=== PATIENT | male | born 1970 | race Caucasian/White ===

== ENCOUNTER 2019-02-04 20:07 | Inpatient (IN) | payer SELFPAY ==
[~2019-02-04] VITALS: Ht 182.9 cm; Wt 163.7 kg
[2019-02-04] MEDS ORDERED: IV NORMAL SALINE 1000ML BAG 1,000 ML IV ONE ×2 (20:30)
[2019-02-04] MEDS ORDERED: NOREPINEPHRIN 8MG/250ML PREMIX 250 ML IV ONE (20:30)
[2019-02-04] MEDS ORDERED: PIPERACILLIN/TAZOBACTAM 4.5 GM in IV NORMAL SALINE 100ML 100 ML IV ONE (20:30)
[2019-02-04 20:52] LABS: BASO # 0.1 x10^3/uL (0.0-0.2); BASO % 0 % (0-3); EOS # 0.1 x10^3/uL (0.0-0.7); EOS % 1 % (0-3); LYMPH # 5.4 x10^3/uL (1.0-4.8); LYMPH % 34 % (24-48); MEAN CORPUSCULAR HEMOGLOBIN 32 pg (25-35); MEAN CORPUSCULAR HGB CONC 29 g/dL (31-37); MEAN CORPUSCULAR VOLUME 110 fL (79-100); MONO # 0.6 x10^3/uL (0.0-1.1); MONO % 4 % (0-9); NEUT # 9.7 x10^3uL (1.8-7.7); NEUT % 61 % (31-73); PLATELET COUNT 100 x10^3/uL (140-400); RED BLOOD COUNT 1.16 x10^6/uL (4.30-5.70); RED CELL DISTRIBUTION WIDTH 18.1 % (11.5-14.5); WHITE BLOOD COUNT 15.9 x10^3/uL (4.0-11.0)
[2019-02-04 20:56] LABS: HEMATOCRIT 12.8 % (39.0-53.0); HEMOGLOBIN 3.7 g/dL (13.0-17.5)
[2019-02-04 20:59] LABS: PROTHROMBIN TIME PATIENT 25.1 SEC (11.7-14.0)
[2019-02-04] MEDS ORDERED: PANTOPRAZOLE IV PUSH 40 MG VIAL. IVP ONE (21:00)
[2019-02-04] MEDS ORDERED: PANTOPRAZOLE SODIUM IV DRIP 80 MG in IV NORMAL SALINE 100ML 100 ML IV SCH (21:00)
[2019-02-04] MEDS ORDERED: OCTREOTIDE 500 MCG in IV NORMAL SALINE 100ML 100 ML IV PRN (21:00)
[2019-02-04 21:13] LABS: ALBUMIN 1.6 g/dL (3.4-5.0); ALBUMIN/GLOBULIN RATIO 0.6 (1.0-1.7); CALCIUM 8.4 mg/dL (8.5-10.1); CREATININE 2.3 mg/dL (0.7-1.3); GFR 30.8; TOTAL BILIRUBIN 0.2 mg/dL (0.2-1.0); TOTAL PROTEIN 4.5 g/dL (6.4-8.2)
[2019-02-04 21:17] LABS: RED BLOOD COUNT 1.02 x10^6/uL (4.30-5.70); RED CELL DISTRIBUTION WIDTH 18.2 % (11.5-14.5); WHITE BLOOD COUNT 13.4 x10^3/uL (4.0-11.0)
[2019-02-04 21:18] LABS: HEMATOCRIT 11.3 % (39.0-53.0); HEMOGLOBIN 3.2 g/dL (13.0-17.5)
[2019-02-04 21:20] LABS: BILIRUBIN,URINE NEGATIVE (NEG); CLARITY,URINE CLOUDY; COLOR,URINE YELLOW; NITRITE,URINE POSITIVE (NEG); PH,URINE 5.5; PROTEIN,URINE 30 mg/dL (NEG-TRACE)
[2019-02-04 21:26] LABS: PROTHROMBIN TIME PATIENT 24.9 SEC (11.7-14.0)
[2019-02-04 21:40] LABS: AMPHETAMINE/METHAMPHETAMINE NEG (NEG); BARBITURATES POS (NEG); BENZODIAZEPINES NEG (NEG); CANNABINOIDS NEG (NEG); COCAINE NEG (NEG); METHADONE NEG (NEG); OPIATES NEG (NEG); PHENCYCLIDINE NEG (NEG)
[2019-02-04 21:49] LABS: CREATININE 2.3 mg/dL (0.7-1.3); GFR 30.8; POTASSIUM 5.4 mmol/L (3.5-5.1)
[2019-02-04 22:22] LABS: BASE EXCESS ABG -24 mmol/L (-3-3); CORRECTED PCO2 ABG 36 mmHg; CORRECTED PH ABG 6.86; CORRECTED PO2 ABG 255 mmHg; HCO3 ABG 7 mmol/L (21-28); SAT O2 ABG 98 % (92-99)
[2019-02-04 22:24] LABS: BACTERIA,URINE FEW /HPF (0-FEW); WBC,URINE TNTC /HPF (0-4)
[2019-02-04 22:25] LABS: PCO2 ABG 39 mmHg (35-46); PO2 ABG 263 mmHg (75-108)
[2019-02-04 22:25] LABS: AMORPHOUS SEDIMENT,UR PRESENT /HPF; SQUAMOUS EPITHELIAL CELL,UR OCC /LPF
--- NOTE | 2019-02-04 23:11 | PDOC1 ---
History and Physical Date of Admission Date of Admission DATE: 02/04/19 TIME: 23:09 Identification/Chief Complaint Chief Complaint Found down Source Source: Caregiver, Chart review History of Present Illness History of Present Illness Mr Slaughter is a 48 yo M w/ PMHx Cirrhosis, heavy ETOH use, hidradenitis, Prior CVA this past July [address] [facility] who presents post cardiac arrest. Per his mother he was reportedly found unresponsive sitting on commode by his family who called EMS. He did not receive CPR until EMS found the patient was asystolic on arrival (10 minutes + downtime). 15-20 minutes of chest compressions were performed with return to this sinus rhythm. Patient intubated without sedation, prehospital EKG performed and does not reveal STEMI. Patient was hypotensive and bradycardic, started on levophed after large fluid bolus. He was found with Hb of 3.2 and 750 cc of blood suctioned from his stomach after intubation and OGT placement. Central line placed by ED for massive transfusion protocol, which was quickly initiated. He did not awaken after resuscitation and did not require any sedation during procedures, had CT head negative and was transferred to ICU for hypothermia post-arrest protocol. 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 He gets most of his care at [facility] per his mother. Nursing staff noted bleeding in bilateral axilla. ABG on arrival was 6.84/39/263, Cr 2.3, BUN 50, AST 598, ALT 119, Albumin 1.6 Past Medical History Cardiovascular: No pertinent hx Pulmonary: No pertinent hx CENTRAL NERVOUS SYSTEM: CVA (Right MCA CVA 07/2018) GI: GI bleed Heme/Onc: No pertinent hx Hepatobiliary: Cirrhosis Psych: Anxiety, Depression Rheumatologic: No pertinent hx Infectious disease: No pertinent hx ENT: No pertinent hx Renal/: No pertinent hx Endocrine: No pertinent hx Dermatology: No pertinent hx Past Surgical History Past Surgical History: No pertinent history Family History Family History: Heart Disease, High Cholestrol, Hypertension Social History Smoke: No ALCOHOL: heavy Drugs: None Current Medications Current Medications Current Medications Sodium Chloride 1,000 ml @ 1,000 mls/hr 1X ONCE IV ; Start 02/04/19 at 20:30; Stop 02/04/19 at 21:29; Status DC Sodium Chloride 1,000 ml @ 1,000 mls/hr 1X ONCE IV ; Start 02/04/19 at 20:30; Stop 02/04/19 at 21:29; Status DC Norepinephrine Bitartrate 250 ml @ 0 mls/hr 1X ONCE IV ; Start 02/04/19 at 20:30; Stop 02/04/19 at 20:36; Status DC Piperacillin Sod/ Tazobactam Sod 4.5 gm/Sodium Chloride 100 ml @ 200 mls/hr 1X ONCE IV ; Start 02/04/19 at 20:30; Stop 02/04/19 at 20:59; Status DC Pantoprazole Sodium (PROTONIX VIAL for IV PUSH) 80 mg 1X ONCE IVP ; Start 02/04/19 at 21:00; Stop 02/04/19 at 21:02; Status DC Pantoprazole Sodium 80 mg/ Sodium Chloride 100 ml @ 10 mls/hr Q10H IV ; Start 02/04/19 at 21:00 Octreotide Acetate 500 mcg/ Sodium Chloride 101 ml @ 0 mls/hr CONT PRN IV SEE I/O RECORD; Start 02/04/19 at 21:00 Allergies Allergies: Coded Allergies: Unable to Assess (Unverified , 02/04/19) ROS Review of System Unable to obtain 14 point ROS due to patient unresponsive Physical Exam General: Other (Obtunded) HEENT: Atraumatic, Other (ET tube in place, OGT in place, no pupillary reflex, no gag reflex, no corneal reflex) Lungs: Other (Ventilatory breath sounds) Heart: S1S2 Abdomen: Other (No bowel sounds) Male Genitals Exam: bleeding, urethral discharge, other ([place] in place) Rectal Exam: hemorrhoids, other (Bleeding in rectal tube) Extremities: Other (Decreased peripheral pulses, left radial arterial line with good waveform) Skin: Other (Bilateral hidradenitis, bleeding, stasis dermatitis bilateral LE. Tattoo on left forearm) Neuro: Other (Not able to elicit reflexes) Labs Labs Laboratory Tests Test 02/04/19 20:34 02/04/19 21:00 02/04/19 21:30 White Blood Count 15.9 x10^3/uL (4.0-11.0) 13.4 x10^3/uL (4.0-11.0) Red Blood Count 1.16 x10^6/uL (4.30-5.70) 1.02 x10^6/uL (4.30-5.70) Hemoglobin 3.7 g/dL (13.0-17.5) 3.2 g/dL (13.0-17.5) Hematocrit 12.8 % (39.0-53.0) 11.3 % (39.0-53.0) Mean Corpuscular Volume 110 fL (79-100) 111 fL (79-100) Mean Corpuscular Hemoglobin 32 pg (25-35) 32 pg (25-35) Mean Corpuscular Hemoglobin Concent 29 g/dL (31-37) 29 g/dL (31-37) Red Cell Distribution Width 18.1 % (11.5-14.5) 18.2 % (11.5-14.5) Platelet Count 100 x10^3/uL (140-400) 93 x10^3/uL (140-400) Neutrophils (%) (Auto) 61 % (31-73) Lymphocytes (%) (Auto) 34 % (24-48) Monocytes (%) (Auto) 4 % (0-9) Eosinophils (%) (Auto) 1 % (0-3) Basophils (%) (Auto) 0 % (0-3) Neutrophils # (Auto) 9.7 x10^3uL (1.8-7.7) Lymphocytes # (Auto) 5.4 x10^3/uL (1.0-4.8) Monocytes # (Auto) 0.6 x10^3/uL (0.0-1.1) Eosinophils # (Auto) 0.1 x10^3/uL (0.0-0.7) Basophils # (Auto) 0.1 x10^3/uL (0.0-0.2) Prothrombin Time 25.1 SEC (11.7-14.0) 24.9 SEC (11.7-14.0) Prothromb Time International Ratio 2.3 (0.8-1.1) 2.3 (0.8-1.1) Activated Partial Thromboplast Time 97 SEC (24-38) 90 SEC (24-38) Sodium Level 133 mmol/L (136-145) 134 mmol/L (136-145) Potassium Level 5.0 mmol/L (3.5-5.1) 5.4 mmol/L (3.5-5.1) Chloride Level 92 mmol/L (98-107) 94 mmol/L (98-107) Carbon Dioxide Level 10 mmol/L (21-32) 10 mmol/L (21-32) Anion Gap 31 (6-14) 30 (6-14) Blood Urea Nitrogen 50 mg/dL (8-26) 51 mg/dL (8-26) Creatinine 2.3 mg/dL (0.7-1.3) 2.3 mg/dL (0.7-1.3) Estimated GFR (Cockcroft-Gault) 30.8 30.8 BUN/Creatinine Ratio 22 (6-20) Glucose Level 201 mg/dL (70-99) 180 mg/dL (70-99) Lactic Acid Level 21.0 mmol/L (0.4-2.0) Calcium Level 8.4 mg/dL (8.5-10.1) 8.0 mg/dL (8.5-10.1) Ionized Calcium 0.97 mmol/L (1.13-1.32) Total Bilirubin 0.2 mg/dL (0.2-1.0) Aspartate Amino Transf (AST/SGOT) 598 U/L (15-37) Alanine Aminotransferase (ALT/SGPT) 119 U/L (16-63) Alkaline Phosphatase 270 U/L (46-116) Troponin I Quantitative 0.032 ng/mL (0.000-0.055) Total Protein 4.5 g/dL (6.4-8.2) Albumin 1.6 g/dL (3.4-5.0) Albumin/Globulin Ratio 0.6 (1.0-1.7) Ethyl Alcohol Level < 10 mg/dL (0-10) Fibrinogen 277 mg/dL (200-440) Urine Color Yellow Urine Clarity Cloudy Urine pH 5.5 Urine Specific [place] 1.015 Urine Protein 30 mg/dL (NEG-TRACE) Urine Glucose (UA) Negative mg/dL (NEG) Urine Ketones (Stick) Trace mg/dL (NEG) Urine Blood Small (NEG) Urine Nitrite Positive (NEG) Urine Bilirubin Negative (NEG) Urine Urobilinogen Dipstick 1.0 mg/dL (0.2 mg/dL) Urine Leukocyte Esterase Large (NEG) Urine RBC 3-5 /HPF (0-2) Urine WBC Tntc /HPF (0-4) Urine Squamous Epithelial Cells Occ /LPF Urine Amorphous Sediment Present /HPF Urine Bacteria Few /HPF (0-FEW) Urine Opiates Screen Neg (NEG) Urine Methadone Screen Neg (NEG) Urine Barbiturates Pos (NEG) Urine Phencyclidine Screen Neg (NEG) Urine Amphetamine/Methamphetamine Neg (NEG) Urine Benzodiazepines Screen Neg (NEG) Urine Cocaine Screen Neg (NEG) Urine Cannabinoids Screen Neg (NEG) Urine Ethyl Alcohol Pos (NEG) O2 Saturation 98 % (92-99) Arterial Blood pH 6.84 (7.35-7.45) Arterial Blood pH (Temp corrected) 6.86 Arterial Blood pCO2 at Patient Temp 39 mmHg (35-46) Arterial Blood pCO2 (Temp correct) 36 mmHg Arterial Blood pO2 at Patient Temp 263 mmHg (75-108) Arterial Blood pO2 (Temp corrected) 255 mmHg Arterial Blood HCO3 7 mmol/L (21-28) Arterial Blood Base Excess -24 mmol/L (-3-3) Laboratory Tests Test 02/04/19 20:34 02/04/19 21:00 02/04/19 21:30 White Blood Count 15.9 x10^3/uL (4.0-11.0) 13.4 x10^3/uL (4.0-11.0) Red Blood Count 1.16 x10^6/uL (4.30-5.70) 1.02 x10^6/uL (4.30-5.70) Hemoglobin 3.7 g/dL (13.0-17.5) 3.2 g/dL (13.0-17.5) Hematocrit 12.8 % (39.0-53.0) 11.3 % (39.0-53.0) Mean Corpuscular Volume 110 fL (79-100) 111 fL (79-100) Mean Corpuscular Hemoglobin 32 pg (25-35) 32 pg (25-35) Mean Corpuscular Hemoglobin Concent 29 g/dL (31-37) 29 g/dL (31-37) Red Cell Distribution Width 18.1 % (11.5-14.5) 18.2 % (11.5-14.5) Platelet Count 100 x10^3/uL (140-400) 93 x10^3/uL (140-400) Neutrophils (%) (Auto) 61 % (31-73) Lymphocytes (%) (Auto) 34 % (24-48) Monocytes (%) (Auto) 4 % (0-9) Eosinophils (%) (Auto) 1 % (0-3) Basophils (%) (Auto) 0 % (0-3) Neutrophils # (Auto) 9.7 x10^3uL (1.8-7.7) Lymphocytes # (Auto) 5.4 x10^3/uL (1.0-4.8) Monocytes # (Auto) 0.6 x10^3/uL (0.0-1.1) Eosinophils # (Auto) 0.1 x10^3/uL (0.0-0.7) Basophils # (Auto) 0.1 x10^3/uL (0.0-0.2) Prothrombin Time 25.1 SEC (11.7-14.0) 24.9 SEC (11.7-14.0) Prothromb Time International Ratio 2.3 (0.8-1.1) 2.3 (0.8-1.1) Activated Partial Thromboplast Time 97 SEC (24-38) 90 SEC (24-38) Sodium Level 133 mmol/L (136-145) 134 mmol/L (136-145) Potassium Level 5.0 mmol/L (3.5-5.1) 5.4 mmol/L (3.5-5.1) Chloride Level 92 mmol/L (98-107) 94 mmol/L (98-107) Carbon Dioxide Level 10 mmol/L (21-32) 10 mmol/L (21-32) Anion Gap 31 (6-14) 30 (6-14) Blood Urea Nitrogen 50 mg/dL (8-26) 51 mg/dL (8-26) Creatinine 2.3 mg/dL (0.7-1.3) 2.3 mg/dL (0.7-1.3) Estimated GFR (Cockcroft-Gault) 30.8 30.8 BUN/Creatinine Ratio 22 (6-20) Glucose Level 201 mg/dL (70-99) 180 mg/dL (70-99) Lactic Acid Level 21.0 mmol/L (0.4-2.0) Calcium Level 8.4 mg/dL (8.5-10.1) 8.0 mg/dL (8.5-10.1) Ionized Calcium 0.97 mmol/L (1.13-1.32) Total Bilirubin 0.2 mg/dL (0.2-1.0) Aspartate Amino Transf (AST/SGOT) 598 U/L (15-37) Alanine Aminotransferase (ALT/SGPT) 119 U/L (16-63) Alkaline Phosphatase 270 U/L (46-116) Troponin I Quantitative 0.032 ng/mL (0.000-0.055) Total Protein 4.5 g/dL (6.4-8.2) Albumin 1.6 g/dL (3.4-5.0) Albumin/Globulin Ratio 0.6 (1.0-1.7) Ethyl Alcohol Level < 10 mg/dL (0-10) Fibrinogen 277 mg/dL (200-440) Urine Color Yellow Urine Clarity Cloudy Urine pH 5.5 Urine Specific [place] 1.015 Urine Protein 30 mg/dL (NEG-TRACE) Urine Glucose (UA) Negative mg/dL (NEG) Urine Ketones (Stick) Trace mg/dL (NEG) Urine Blood Small (NEG) Urine Nitrite Positive (NEG) Urine Bilirubin Negative (NEG) Urine Urobilinogen Dipstick 1.0 mg/dL (0.2 mg/dL) Urine Leukocyte Esterase Large (NEG) Urine RBC 3-5 /HPF (0-2) Urine WBC Tntc /HPF (0-4) Urine Squamous Epithelial Cells Occ /LPF Urine Amorphous Sediment Present /HPF Urine Bacteria Few /HPF (0-FEW) Urine Opiates Screen Neg (NEG) Urine Methadone Screen Neg (NEG) Urine Barbiturates Pos (NEG) Urine Phencyclidine Screen Neg (NEG) Urine Amphetamine/Methamphetamine Neg (NEG) Urine Benzodiazepines Screen Neg (NEG) Urine Cocaine Screen Neg (NEG) Urine Cannabinoids Screen Neg (NEG) Urine Ethyl Alcohol Pos (NEG) O2 Saturation 98 % (92-99) Arterial Blood pH 6.84 (7.35-7.45) Arterial Blood pH (Temp corrected) 6.86 Arterial Blood pCO2 at Patient Temp 39 mmHg (35-46) Arterial Blood pCO2 (Temp correct) 36 mmHg Arterial Blood pO2 at Patient Temp 263 mmHg (75-108) Arterial Blood pO2 (Temp corrected) 255 mmHg Arterial Blood HCO3 7 mmol/L (21-28) Arterial Blood Base Excess -24 mmol/L (-3-3) Images Images CT head - The ventricles and sulci are normal for the patient's age. No mass-effect, midline shift, hemorrhage, extra-axial fluid collection, or obvious acute infarction is identified. Basilar cisterns are patent. Bone windows demonstrate no acute calvarial abnormality. There is artifact adjacent to the calvarium. Moderate mucosal thickening bilateral ethmoid and right maxillary sinuses. Minimal mucosal thickening left sphenoid sinus. No air-fluid level is seen. Mastoid air cells are well aerated. There is moderate fluid in the nasal passageway. The patient is intubated. CXR - Endotracheal tube tip is 1.5 cm superior to the nilo. Right subclavian central line, tip in the upper right atrium. There are low lung volumes. The cardiomediastinal silhouette is normal. Lungs are clear. There is no obvious pneumothorax. No pleural effusion is appreciated. No acute bone abnormality. VTE Prophylaxis Ordered VTE Prophylaxis Devices: Yes VTE Pharmacological Prophylaxi: Contraindicated Assessment/Plan Assessment/Plan A/P: Asystole arrest - uncertain downtime, non-responsive after ROSC. On hypothermia protocol. Cardiology contacted. No known cardiac history per his family. UGIB - with lower GI bleeding. Hb 3.2, on massive transfusion protocol, will continue throughout the night. Octreotide and protonix infusions Blood loss anemia - as above. Hold anticoagulants and antiplatelet agents, Hypovolemic shock - on levophed with A-line showing 38/12, add vasopressin, dopamine. Will add epinephrine infusion if necessary. Albumin + calcium as well Anion gap metabolic acidosis - secondary to lactic acidosis, 21, from likely hypoxic respiratory failure after asystole arrest. Will monitor. If he remains stable may require renal replacement therapy MARCELLO - cr 2.3, BUN 50 with no known history of renal disease, likely vasomotor from cardiac arrest, will monitor. BUN may be elevated from UGIB. Transaminitis - likely shock liver from cardiac arrest, though he apparently has underlying cirrhosis, will monitor Thrombocytopenia - likely from underlying liver disease/post arrest state, transfuse platelets per massive transfusion protocol Leukocytosis - could be secondary to arrest or infectious etiology with apparent UTI, nitrites and LE positive on UA. Will cover empirically with rocephin if he has the IV space Hypocalcemia - will replace, repeat ionized calcium per hypothermia protocol Severe protein calorie malnutrition - likely related to his liver disease. With his fluid losses and exsanguination he could benefit from albumin infusion, will order colloids Unresponsive - patient with poor reflexes noted, will consult neurology Cirrhosis - likely cause of his massive upper and lower GI bleed, likely with esophageal varices and hemorrhoids. GI consulted Heavy ETOH use - will consult neurology Hidradenitis - non-adherent dressings to bilateral axilla Pressure ulcer right posterior leg - will offload Prior CVA - this past July 2018, has been recovering from his SNF stay and now at home, just starting to get mobile again per his family FEN - NPO PPX - Octreotide and Protonix infusions, SCDs FULL CODE per discussion with mother. She is realistic about his ultimate outcome, lives 15 minutes away. She wishes for full code through hypothermia protocol Dispo - ICU for cardiac arrest with massive GI bleed. Prognosis is extremely poor and it is uncertain on not only his downtime prior to resuscitative efforts, but also uncertain what his neurologic status is at this time. 173 minutes of critical care time spent with patient including all procedures, meds, family discussion RAMON CAVANAUGH MD Feb 04, 2019 23:11
--- NOTE | 2019-02-04 23:17 | RAD ---
RS Compliance Statement: One or more of the following individualized dose reduction techniques were utilized for this examination: 1. Automated exposure control 2. Adjustment of the mA and/or kV according to patient size 3. Use of iterative reconstruction technique CT HEAD WITHOUT CONTRAST History: Altered mental status. Comparison: None. Procedure: Axial images are obtained of the head from the skull base through the vertex without IV contrast. Findings: The ventricles and sulci are normal for the patient's age. No mass-effect, midline shift, hemorrhage, extra-axial fluid collection, or obvious acute infarction is identified. Basilar cisterns are patent. Bone windows demonstrate no acute calvarial abnormality. There is artifact adjacent to the calvarium. Moderate mucosal thickening bilateral ethmoid and right maxillary sinuses. Minimal mucosal thickening left sphenoid sinus. No air-fluid level is seen.. Mastoid air cells are well aerated. There is moderate fluid in the nasal passageway. The patient is intubated. IMPRESSION: No acute intracranial abnormality. Electronically signed by: Vijay Muro MD (02/04/2019 11:15 PM) [facility]
--- NOTE | 2019-02-04 23:47 | PHYS DOC ---
Adult General Chief Complaint Chief Complaint: CPR/FULL ARREST HPI HPI Patient is a 48 year old male who presents post cardiac arrest. Patient reportedly found unresponsive sitting on commode. EMS was contacted. No initial bystander CPR was performed. On EMS arrival, the patient was asystolic. 15-20 minutes of chest compressions were performed with return to this sinus rhythm. Patient intubated without sedation, prehospital EKG performed and does not reveal STEMI. Patient hypotensive and bradycardic. History is limited due to the patient's condition. [] Review of Systems Review of Systems Review symptoms unobtainable. All other systems were reviewed and found to be within normal limits, except as documented in this note. Current Medications Current Medications Current Medications Medications (Trade) Dose Ordered Sig/Koby Start Time Stop Time Status Last Admin Dose Admin Norepinephrine Bitartrate 250 ml @ 0 mls/hr 1X ONCE 02/04/19 20:30 02/04/19 20:36 DC Piperacillin Sod/ Tazobactam Sod 4.5 gm/Sodium Chloride 100 ml @ 200 mls/hr 1X ONCE 02/04/19 20:30 02/04/19 20:59 DC Sodium Chloride 1,000 ml @ 1,000 mls/hr 1X ONCE 02/04/19 20:30 02/04/19 21:29 DC Physical Exam Physical Exam Constitutional: Unresponsive, intubated, manual bag valve mask dilation per RT.. [] HENT: Normocephalic, atraumatic, bilateral external ears normal, oropharynx moist, no oral exudates, nose normal. [] Eyes: Dilated pupils unreactive patient, conjunctiva pale[] Neck: No midline step-off.. [] Cardiovascular: Bradycardic[] Lungs & Thorax: Respirations clear and equal bilaterally.[] Abdomen: Bowel sounds normal, soft, obesity compromising exam. [] Skin: Central pallor. [] Extremities: No tenderness, edema. [] Neurologic: Unresponsive, GCS 3. [] Current Patient Data Vital Signs Vital Signs Date Time Temp Pulse Resp B/P (MAP) Pulse Ox O2 Delivery O2 Flow Rate FiO2 02/04/19 20:20 100 Ventilator EKG EKG [] Radiology/Procedures Radiology/Procedures [] Course & Med Decision Making Course & Med Decision Making Pertinent Labs and Imaging studies reviewed. (See chart for details) [Patient hypotensive. Central line placed shortly after ED arrival. Aggressive IV fluids, pressors started. Hemoglobin of 3.3. Mass transfusion protocol initiated. Patient with upper GI bleed with 750+ ML's of dark red blood suctioned from oral gastric tube. Protonix, Sandostatin started. Patient's mother/durable medical power of district attorney confirms history of cirrhosis and alcohol abuse. Dr. Katz paraprofessional education assistant for GI consult it. Recommends further stabilization in the ICU. Dr. Reyna on-call for the hospitalist service in the ED for admission.] Dragon Disclaimer Dragon Disclaimer This electronic medical record was generated, in whole or in part, using a voice recognition dictation system. Departure Departure Impression: Primary Impression: Cardiac arrest Additional Impressions: Upper GI bleeding Blood loss anemia Hypovolemic shock Disposition: 09 ADMITTED INPATIENT Condition: GRAVE Referrals: JAVON RAVI MD (PCP) Problem Qualifiers ROXANNE ALLAN DO Feb 04, 2019 23:47
[2019-02-05] VITALS (7 sets, daily range): BP systolic 22–30; BP diastolic 16–20
--- NOTE | 2019-02-05 | RAD ---
CHEST AP supine ONLY Clinical Indication: Central line and ET tube placement Comparison: None. Findings: Endotracheal tube tip is 1.5 cm superior to the nilo. Right subclavian central line, tip in the upper right atrium. There are low lung volumes. The cardiomediastinal silhouette is normal. Lungs are clear. There is no obvious pneumothorax. No pleural effusion is appreciated. No acute bone abnormality. IMPRESSION: 1. Life support devices as above. 2. No acute cardiopulmonary process. Electronically signed by: Vijay Muro MD (02/04/2019 11:57 PM) [facility]
--- NOTE | 2019-02-05 | NUR ---
Admission Note: Pt admitted, post code, hypothermia protocol ordered. Pt was 93.3 degrees when into ICU bed. Junctional on the monitor with in the 30s rate. Pt unresponsive to any stimuli. Massive blood transfusion protocol started in ED. See transfusion intervention. Unable to obtain a blood pressure via cuff. Able to palpate radial pulses, very weak however. Dr. Reyna called orders received to start pressers. Pts mom not on unit, spoke with Dr. Reyna and he said she went home after transfer from ED. R IJ triple lumen central line in place. Multiple areas on patient weaping blood, moderate foul smelling/bloody stool noted on transfer to ICU bed. OG to LIS with dark red blood. Labs noted, updated Dr. Reyna on patients status.
[2019-02-05 00:04] LABS: % BANDS 8 % (0-9); PLT ESTIMATE DECREASED (ADEQUATE)
[2019-02-05 00:05] LABS: % EOS 1 % (0-5); % LYMPHS 56 % (24-48); % METAS 3 % (0-0); % MONOS 1 % (0-10); % MYELOS 4 % (0-0); % SEGS 27 % (35-66); MICROCYTOSIS SLIGHT; NUCLEATED RBC 2
[2019-02-05 00:06] LABS: ANISOCYTOSIS MOD; TOXIC VACUOLATION SLIGHT
[2019-02-05 00:07] LABS: SCHISTOCYTES OCC
[2019-02-05] MEDS ORDERED: VASOPRESSIN 40 UNIT in IV DEXTROSE 5% 100ML 100 ML IV PRN (00:30)
--- NOTE | 2019-02-05 00:30 | NUR ---
Nursing Note: Dr. Reyna here to see patient. KILN FEEDER placed L radial A-line. Continuing massive blood transfusion protocol. Dr. Reyna with orders on unit. ED reported 3L NS given and dose of Zosyn. Labs drawn after first round of blood transfusions. Pt continues to be very hypotensive despite pressers being maxed out and blood products. Dr. Reyna remained on unit for approximately 1.5 hours.
[2019-02-05 00:35] LABS: HEMOGLOBIN 7.2 g/dL (13.0-17.5); RED BLOOD COUNT 2.43 x10^6/uL (4.30-5.70); RED CELL DISTRIBUTION WIDTH 19.3 % (11.5-14.5); WHITE BLOOD COUNT 11.3 x10^3/uL (4.0-11.0)
[2019-02-05 00:45] LABS: PROTHROMBIN TIME PATIENT 30.5 SEC (11.7-14.0)
[2019-02-05] MEDS ORDERED: CALCIUM CHLORIDE 1,000 MG in IV DEXTROSE 5% 50 ML IV ONE ×2 (00:45→05:00)
--- NOTE | 2019-02-05 00:45 | NUR ---
Hypothermia Cooling blankets never started, pt cooled to goal without them on. Pt continues to get colder. Will attempt to maintain around 33 degrees celsius.
[2019-02-05 00:49] LABS: FIBRINOGEN 138 mg/dL (200-440)
[2019-02-05 00:58] LABS: PARTIAL THROMBOPLASTIN TIME > 150 SEC (24-38)
[2019-02-05] MEDS ORDERED: ALBUMIN HUMAN 25% 100 ML IV ONE (01:00)
[2019-02-05] MEDS ORDERED: NOREPINEPHRIN 8MG/250ML PREMIX 250 ML IV PRN (01:00)
[2019-02-05 01:01] LABS: POTASSIUM 6.7 mmol/L (3.5-5.1)
[2019-02-05] MEDS ORDERED: INSULIN REGULAR 100 UNIT/ML 3ML VIAL. IV ONE ×2 (01:15→05:00)
[2019-02-05] MEDS ORDERED: ALBUTEROL SULFATE 2.5 MG/3 ML NEBU. CONT NEB ONE ×2 (01:15→05:00)
[2019-02-05] MEDS ORDERED: SODIUM BICARB ADULT 8.4% 50 MEQ/50 ML DISP.SYRIN. IV ONE ×2 (01:15→05:00)
[2019-02-05] MEDS ORDERED: DEXTROSE 50% 25 GM / 50ML DISP.SYRIN. IV ONE ×2 (01:15→05:00)
--- NOTE | 2019-02-05 03:00 | NUR ---
Nursing Note: Spoke with Marsha (pts mother). updated on patients poor condition. States she is the DPOA and that he would wish to be a DNR. Dr. Reyna called and code status changed. Continues on Massive transfusion protocol and multiple pressers maxed out.
[2019-02-05 03:39] LABS: HEMOGLOBIN 9.2 g/dL (13.0-17.5); RED BLOOD COUNT 3.06 x10^6/uL (4.30-5.70); RED CELL DISTRIBUTION WIDTH 17.1 % (11.5-14.5); WHITE BLOOD COUNT 13.4 x10^3/uL (4.0-11.0)
[2019-02-05 03:56] LABS: PROTHROMBIN TIME PATIENT 43.6 SEC (11.7-14.0)
[2019-02-05 04:07] LABS: POTASSIUM 7.3 mmol/L (3.5-5.1)
[2019-02-05] MEDS ORDERED: POLYVINYL ALCOHOL 1.4% OPHTH SOLUTION 15ML BOTTLE. OU PRN (04:15)
[2019-02-05] MEDS ORDERED: MIDAZOLAM 100mg/100ml NS BAG 100 ML IV PRN (04:15)
[2019-02-05] MEDS ORDERED: PROPOFOL 100 ML IV PRN (04:15)
[2019-02-05 04:17] LABS: FIBRINOGEN 60 mg/dL (200-440); PARTIAL THROMBOPLASTIN TIME > 150 SEC (24-38)
--- NOTE | 2019-02-05 04:20 | NUR ---
Verified with pt's mother Marsha Slaughter via telephone that pt. is to be a DNR, no chest compressions otherwise continue current treatment.
[2019-02-05] MEDS ORDERED: ACETAMINOPHEN 650 MG/20.3 ML SOLUTION. NG SCH (04:30)
[2019-02-05] MEDS ORDERED: fentaNYL PF VIAL 100 MCG/2 ML VIAL IV ONE (04:30)
[2019-02-05] MEDS ORDERED: MIDAZOLAM HCL/PF 2 MG/2 ML VIAL. IV ONE (04:30)
[2019-02-05] MEDS ORDERED: VECURONIUM BOLUS 10 MG VIAL. IV PRN (04:30)
--- NOTE | 2019-02-05 05:00 | NUR ---
Patient at 0445, shortly after receiving orders regarding critical labs. Pt with a few agonal beats and went asystole. Dr. Reyna and pts mom notified. [facility] notified.
[2019-02-05] MEDS ORDERED: POLYVINYL ALCOHOL 1.4% OPHTH SOLUTION 15ML BOTTLE. OU SCH (06:00)
--- NOTE | 2019-02-05 07:27 | PDOC3 ---
Discharge Summary Visit Information Date of Admission: Feb 04, 2019 Date of Discharge: Feb 05, 2019 Admitting Diagnosis: Asystole cardiac arrest Final Diagnosis Problems Medical Problems: (1) Blood loss anemia Status: Acute (2) Hypovolemic shock Status: Acute (3) Upper GI bleeding Status: Acute Brief Hospital Course Allergies Allergies Coded Allergies Type Severity Reaction Last Updated Verified Unable to Assess 02/04/19 No Vital Signs Vital Signs Date Time Temp Pulse Resp B/P (MAP) Pulse Ox O2 Delivery O2 Flow Rate FiO2 02/05/19 04:30 90.5 26 16 Ventilator 90.5 02/05/19 03:30 22/18 (19) 02/04/19 23:44 100 Lab Results Laboratory Tests Test 02/04/19 20:34 02/04/19 21:00 02/04/19 21:30 02/05/19 00:30 White Blood Count 15.9 x10^3/uL (4.0-11.0) 13.4 x10^3/uL (4.0-11.0) 11.3 x10^3/uL (4.0-11.0) Red Blood Count 1.16 x10^6/uL (4.30-5.70) 1.02 x10^6/uL (4.30-5.70) 2.43 x10^6/uL (4.30-5.70) Hemoglobin 3.7 g/dL (13.0-17.5) 3.2 g/dL (13.0-17.5) 7.2 g/dL (13.0-17.5) Hematocrit 12.8 % (39.0-53.0) 11.3 % (39.0-53.0) 24.0 % (39.0-53.0) Mean Corpuscular Volume 110 fL (79-100) 111 fL (79-100) 99 fL (79-100) Mean Corpuscular Hemoglobin 32 pg (25-35) 32 pg (25-35) 30 pg (25-35) Mean Corpuscular Hemoglobin Concent 29 g/dL (31-37) 29 g/dL (31-37) 30 g/dL (31-37) Red Cell Distribution Width 18.1 % (11.5-14.5) 18.2 % (11.5-14.5) 19.3 % (11.5-14.5) Platelet Count 100 x10^3/uL (140-400) 93 x10^3/uL (140-400) 134 x10^3/uL (140-400) Neutrophils (%) (Auto) 61 % (31-73) Lymphocytes (%) (Auto) 34 % (24-48) Monocytes (%) (Auto) 4 % (0-9) Eosinophils (%) (Auto) 1 % (0-3) Basophils (%) (Auto) 0 % (0-3) Neutrophils # (Auto) 9.7 x10^3uL (1.8-7.7) Lymphocytes # (Auto) 5.4 x10^3/uL (1.0-4.8) Monocytes # (Auto) 0.6 x10^3/uL (0.0-1.1) Eosinophils # (Auto) 0.1 x10^3/uL (0.0-0.7) Basophils # (Auto) 0.1 x10^3/uL (0.0-0.2) Segmented Neutrophils % 27 % (35-66) Band Neutrophils % 8 % (0-9) Lymphocytes % 56 % (24-48) Monocytes % 1 % (0-10) Eosinophils % 1 % (0-5) Metamyelocytes % 3 % (0-0) Myelocytes % 4 % (0-0) Nucleated Red Blood Cells 2 Toxic Vacuolation Slight Platelet Estimate Decreased (ADEQUATE) Large Platelets Occ Anisocytosis Mod Microcytosis Slight Macrocytosis Mod Schistocytes Occ Prothrombin Time 25.1 SEC (11.7-14.0) 24.9 SEC (11.7-14.0) 30.5 SEC (11.7-14.0) Prothromb Time International Ratio 2.3 (0.8-1.1) 2.3 (0.8-1.1) 2.9 (0.8-1.1) Activated Partial Thromboplast Time 97 SEC (24-38) 90 SEC (24-38) > 150 SEC (24-38) Sodium Level 133 mmol/L (136-145) 134 mmol/L (136-145) Potassium Level 5.0 mmol/L (3.5-5.1) 5.4 mmol/L (3.5-5.1) 6.7 mmol/L (3.5-5.1) Chloride Level 92 mmol/L (98-107) 94 mmol/L (98-107) Carbon Dioxide Level 10 mmol/L (21-32) 10 mmol/L (21-32) Anion Gap 31 (6-14) 30 (6-14) Blood Urea Nitrogen 50 mg/dL (8-26) 51 mg/dL (8-26) Creatinine 2.3 mg/dL (0.7-1.3) 2.3 mg/dL (0.7-1.3) Estimated GFR (Cockcroft-Gault) 30.8 30.8 BUN/Creatinine Ratio 22 (6-20) Glucose Level 201 mg/dL (70-99) 180 mg/dL (70-99) 120 mg/dL (70-99) Lactic Acid Level 21.0 mmol/L (0.4-2.0) Calcium Level 8.4 mg/dL (8.5-10.1) 8.0 mg/dL (8.5-10.1) Ionized Calcium 0.97 mmol/L (1.13-1.32) 0.78 mmol/L (1.13-1.32) Total Bilirubin 0.2 mg/dL (0.2-1.0) Aspartate Amino Transf (AST/SGOT) 598 U/L (15-37) Alanine Aminotransferase (ALT/SGPT) 119 U/L (16-63) Alkaline Phosphatase 270 U/L (46-116) Troponin I Quantitative 0.032 ng/mL (0.000-0.055) Total Protein 4.5 g/dL (6.4-8.2) Albumin 1.6 g/dL (3.4-5.0) Albumin/Globulin Ratio 0.6 (1.0-1.7) Ethyl Alcohol Level < 10 mg/dL (0-10) Fibrinogen 277 mg/dL (200-440) 138 mg/dL (200-440) Urine Color Yellow Urine Clarity Cloudy Urine pH 5.5 Urine Specific [place] 1.015 Urine Protein 30 mg/dL (NEG-TRACE) Urine Glucose (UA) Negative mg/dL (NEG) Urine Ketones (Stick) Trace mg/dL (NEG) Urine Blood Small (NEG) Urine Nitrite Positive (NEG) Urine Bilirubin Negative (NEG) Urine Urobilinogen Dipstick 1.0 mg/dL (0.2 mg/dL) Urine Leukocyte Esterase Large (NEG) Urine RBC 3-5 /HPF (0-2) Urine WBC Tntc /HPF (0-4) Urine Squamous Epithelial Cells Occ /LPF Urine Amorphous Sediment Present /HPF Urine Bacteria Few /HPF (0-FEW) Urine Opiates Screen Neg (NEG) Urine Methadone Screen Neg (NEG) Urine Barbiturates Pos (NEG) Urine Phencyclidine Screen Neg (NEG) Urine Amphetamine/Methamphetamine Neg (NEG) Urine Benzodiazepines Screen Neg (NEG) Urine Cocaine Screen Neg (NEG) Urine Cannabinoids Screen Neg (NEG) Urine Ethyl Alcohol Pos (NEG) O2 Saturation 98 % (92-99) Arterial Blood pH 6.84 (7.35-7.45) Arterial Blood pH (Temp corrected) 6.86 Arterial Blood pCO2 at Patient Temp 39 mmHg (35-46) Arterial Blood pCO2 (Temp correct) 36 mmHg Arterial Blood pO2 at Patient Temp 263 mmHg (75-108) Arterial Blood pO2 (Temp corrected) 255 mmHg Arterial Blood HCO3 7 mmol/L (21-28) Arterial Blood Base Excess -24 mmol/L (-3-3) Test 02/05/19 03:30 White Blood Count 13.4 x10^3/uL (4.0-11.0) Red Blood Count 3.06 x10^6/uL (4.30-5.70) Hemoglobin 9.2 g/dL (13.0-17.5) Hematocrit 31.0 % (39.0-53.0) Mean Corpuscular Volume 102 fL (79-100) Mean Corpuscular Hemoglobin 30 pg (25-35) Mean Corpuscular Hemoglobin Concent 30 g/dL (31-37) Red Cell Distribution Width 17.1 % (11.5-14.5) Platelet Count 102 x10^3/uL (140-400) Prothrombin Time 43.6 SEC (11.7-14.0) Prothromb Time International Ratio 4.6 (0.8-1.1) Activated Partial Thromboplast Time > 150 SEC (24-38) Fibrinogen 60 mg/dL (200-440) Potassium Level 7.3 mmol/L (3.5-5.1) Glucose Level 131 mg/dL (70-99) Calcium Level 7.9 mg/dL (8.5-10.1) Ionized Calcium 0.73 mmol/L (1.13-1.32) Laboratory Tests Test 02/04/19 20:34 02/04/19 21:00 02/04/19 21:30 02/05/19 00:30 White Blood Count 15.9 x10^3/uL (4.0-11.0) 13.4 x10^3/uL (4.0-11.0) 11.3 x10^3/uL (4.0-11.0) Red Blood Count 1.16 x10^6/uL (4.30-5.70) 1.02 x10^6/uL (4.30-5.70) 2.43 x10^6/uL (4.30-5.70) Hemoglobin 3.7 g/dL (13.0-17.5) 3.2 g/dL (13.0-17.5) 7.2 g/dL (13.0-17.5) Hematocrit 12.8 % (39.0-53.0) 11.3 % (39.0-53.0) 24.0 % (39.0-53.0) Mean Corpuscular Volume 110 fL (79-100) 111 fL (79-100) 99 fL (79-100) Mean Corpuscular Hemoglobin 32 pg (25-35) 32 pg (25-35) 30 pg (25-35) Mean Corpuscular Hemoglobin Concent 29 g/dL (31-37) 29 g/dL (31-37) 30 g/dL (31-37) Red Cell Distribution Width 18.1 % (11.5-14.5) 18.2 % (11.5-14.5) 19.3 % (11.5-14.5) Platelet Count 100 x10^3/uL (140-400) 93 x10^3/uL (140-400) 134 x10^3/uL (140-400) Neutrophils (%) (Auto) 61 % (31-73) Lymphocytes (%) (Auto) 34 % (24-48) Monocytes (%) (Auto) 4 % (0-9) Eosinophils (%) (Auto) 1 % (0-3) Basophils (%) (Auto) 0 % (0-3) Neutrophils # (Auto) 9.7 x10^3uL (1.8-7.7) Lymphocytes # (Auto) 5.4 x10^3/uL (1.0-4.8) Monocytes # (Auto) 0.6 x10^3/uL (0.0-1.1) Eosinophils # (Auto) 0.1 x10^3/uL (0.0-0.7) Basophils # (Auto) 0.1 x10^3/uL (0.0-0.2) Segmented Neutrophils % 27 % (35-66) Band Neutrophils % 8 % (0-9) Lymphocytes % 56 % (24-48) Monocytes % 1 % (0-10) Eosinophils % 1 % (0-5) Metamyelocytes % 3 % (0-0) Myelocytes % 4 % (0-0) Nucleated Red Blood Cells 2 Toxic Vacuolation Slight Platelet Estimate Decreased (ADEQUATE) Large Platelets Occ Anisocytosis Mod Microcytosis Slight Macrocytosis Mod Schistocytes Occ Prothrombin Time 25.1 SEC (11.7-14.0) 24.9 SEC (11.7-14.0) 30.5 SEC (11.7-14.0) Prothromb Time International Ratio 2.3 (0.8-1.1) 2.3 (0.8-1.1) 2.9 (0.8-1.1) Activated Partial Thromboplast Time 97 SEC (24-38) 90 SEC (24-38) > 150 SEC (24-38) Sodium Level 133 mmol/L (136-145) 134 mmol/L (136-145) Potassium Level 5.0 mmol/L (3.5-5.1) 5.4 mmol/L (3.5-5.1) 6.7 mmol/L (3.5-5.1) Chloride Level 92 mmol/L (98-107) 94 mmol/L (98-107) Carbon Dioxide Level 10 mmol/L (21-32) 10 mmol/L (21-32) Anion Gap 31 (6-14) 30 (6-14) Blood Urea Nitrogen 50 mg/dL (8-26) 51 mg/dL (8-26) Creatinine 2.3 mg/dL (0.7-1.3) 2.3 mg/dL (0.7-1.3) Estimated GFR (Cockcroft-Gault) 30.8 30.8 BUN/Creatinine Ratio 22 (6-20) Glucose Level 201 mg/dL (70-99) 180 mg/dL (70-99) 120 mg/dL (70-99) Lactic Acid Level 21.0 mmol/L (0.4-2.0) Calcium Level 8.4 mg/dL (8.5-10.1) 8.0 mg/dL (8.5-10.1) Ionized Calcium 0.97 mmol/L (1.13-1.32) 0.78 mmol/L (1.13-1.32) Total Bilirubin 0.2 mg/dL (0.2-1.0) Aspartate Amino Transf (AST/SGOT) 598 U/L (15-37) Alanine Aminotransferase (ALT/SGPT) 119 U/L (16-63) Alkaline Phosphatase 270 U/L (46-116) Troponin I Quantitative 0.032 ng/mL (0.000-0.055) Total Protein 4.5 g/dL (6.4-8.2) Albumin 1.6 g/dL (3.4-5.0) Albumin/Globulin Ratio 0.6 (1.0-1.7) Ethyl Alcohol Level < 10 mg/dL (0-10) Fibrinogen 277 mg/dL (200-440) 138 mg/dL (200-440) Urine Color Yellow Urine Clarity Cloudy Urine pH 5.5 Urine Specific [place] 1.015 Urine Protein 30 mg/dL (NEG-TRACE) Urine Glucose (UA) Negative mg/dL (NEG) Urine Ketones (Stick) Trace mg/dL (NEG) Urine Blood Small (NEG) Urine Nitrite Positive (NEG) Urine Bilirubin Negative (NEG) Urine Urobilinogen Dipstick 1.0 mg/dL (0.2 mg/dL) Urine Leukocyte Esterase Large (NEG) Urine RBC 3-5 /HPF (0-2) Urine WBC Tntc /HPF (0-4) Urine Squamous Epithelial Cells Occ /LPF Urine Amorphous Sediment Present /HPF Urine Bacteria Few /HPF (0-FEW) Urine Opiates Screen Neg (NEG) Urine Methadone Screen Neg (NEG) Urine Barbiturates Pos (NEG) Urine Phencyclidine Screen Neg (NEG) Urine Amphetamine/Methamphetamine Neg (NEG) Urine Benzodiazepines Screen Neg (NEG) Urine Cocaine Screen Neg (NEG) Urine Cannabinoids Screen Neg (NEG) Urine Ethyl Alcohol Pos (NEG) O2 Saturation 98 % (92-99) Arterial Blood pH 6.84 (7.35-7.45) Arterial Blood pH (Temp corrected) 6.86 Arterial Blood pCO2 at Patient Temp 39 mmHg (35-46) Arterial Blood pCO2 (Temp correct) 36 mmHg Arterial Blood pO2 at Patient Temp 263 mmHg (75-108) Arterial Blood pO2 (Temp corrected) 255 mmHg Arterial Blood HCO3 7 mmol/L (21-28) Arterial Blood Base Excess -24 mmol/L (-3-3) Test 02/05/19 03:30 White Blood Count 13.4 x10^3/uL (4.0-11.0) Red Blood Count 3.06 x10^6/uL (4.30-5.70) Hemoglobin 9.2 g/dL (13.0-17.5) Hematocrit 31.0 % (39.0-53.0) Mean Corpuscular Volume 102 fL (79-100) Mean Corpuscular Hemoglobin 30 pg (25-35) Mean Corpuscular Hemoglobin Concent 30 g/dL (31-37) Red Cell Distribution Width 17.1 % (11.5-14.5) Platelet Count 102 x10^3/uL (140-400) Prothrombin Time 43.6 SEC (11.7-14.0) Prothromb Time International Ratio 4.6 (0.8-1.1) Activated Partial Thromboplast Time > 150 SEC (24-38) Fibrinogen 60 mg/dL (200-440) Potassium Level 7.3 mmol/L (3.5-5.1) Glucose Level 131 mg/dL (70-99) Calcium Level 7.9 mg/dL (8.5-10.1) Ionized Calcium 0.73 mmol/L (1.13-1.32) Brief Hospital Course Mr Slaughter is a 48 yo M w/ PMHx Cirrhosis, heavy ETOH use, hidradenitis, 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 Per his mother he was reportedly found unresponsive sitting on commode by his family who called EMS. He did not receive CPR until EMS found the patient was asystolic on arrival (10 minutes + downtime). 15-20 minutes of chest compressions were performed with return to this sinus rhythm. Patient intubated without sedation, prehospital EKG performed and does not reveal STEMI. Patient was hypotensive and bradycardic, started on levophed after large fluid bolus. He was found with Hb of 3.2 and 750 cc of blood suctioned from his stomach after intubation and OGT placement. Central line placed by ED for massive transfusion protocol, which was quickly initiated. He did not awaken after resuscitation and did not require any sedation during procedures, had CT head negative and was transferred to ICU for hypothermia post-arrest protocol. 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 He gets most of his care at [facility] per his mother. Nursing staff noted bleeding in bilateral axilla. ABG on arrival was 6.84/39/263, Cr 2.3, BUN 50, AST 598, ALT 119, Albumin 1.6. He was resuscitated with 10 units of blood, 4FFP, and 2units of platelets and placed on eventually 4 pressors. Hb did come up to 9.2, however, he became progressively more hyperkalemic despite aggressive measures to mitigate his rising potassium with bicarbonate, insulin with D50, albuterol and multiple rounds of calcium. After discussion with his mother she stated she would not want CPR performed on him if he were to arrest again and at 0445 after many hours of heroic measures by nursing staff he was noted in asystole on wharf hand and pulseless. Discharge Information Condition at Discharge: / Disposition/Orders: RAMON CAVANAUGH MD Feb 05, 2019 07:27
--- NOTE | 2019-02-05 13:27 | EKG ---
[facility] [address] [place] [address] Test Date: 2019-02-04 Test Time: 20:10:20 Pat Name: HEIDI RONQUILLO Department: Room: Gender: M Technical Sales Engineer: : [id number] Requested By: ROXANNE ALLAN Order Number: [id number] Reading MD: Measurements Intervals [place] Rate: 56 P: IA: QRS: 146 QRSD: 102 T: 110 QT: 412 QTc: 400 Interpretive Statements ATRIAL FIBRILLATION * POSSIBLE REVERSAL OF THE ARM LEADS ABNORMAL RIGHT AXIS DEVIATION CONSIDER RIGHT VENTRICULAR HYPERTROPHY QRS(T) CONTOUR ABNORMALITY CONSISTENT WITH HIGH LATERAL INFARCT AGE UNDETERMINED CONSIDER INFERIOR INFARCT NON SPECIFIC ST DEPRESSION ABNORMAL ECG No previous ECG available for comparison
== END 2019-02-05 04:45 | disposition expired | DRG 377 ==
LOC: ER 20:07 → 1 WEST ICU 20:30
PROVIDERS: ADMIT Internal Medicine; ATTEND Internal Medicine
PROC: 30233K1 Transfusion of Nonautologous Frozen Plasma into Peripheral Vein, Percutaneous Approach (ICD-10-PCS; principal; 2019-02-04)
PROC: 30233N1 Transfusion of Nonautologous Red Blood Cells into Peripheral Vein, Percutaneous Approach (ICD-10-PCS; 2019-02-04)
PROC: 30233R1 Transfusion of Nonautologous Platelets into Peripheral Vein, Percutaneous Approach (ICD-10-PCS; 2019-02-04)
PROC: 0BH17EZ Insertion of Endotracheal Airway into Trachea, Via Natural or Artificial Opening (ICD-10-PCS; 2019-02-04)
PROC: 5A1935Z Respiratory Ventilation, Less than 24 Consecutive Hours (ICD-10-PCS; 2019-02-04)
PROC: 02H633Z Insertion of Infusion Device into Right Atrium, Percutaneous Approach (ICD-10-PCS; 2019-02-04)
DX: K92.2 Gastrointestinal hemorrhage, unspecified (principal); E43 Unspecified severe protein-calorie malnutrition; E87.2 Acidosis; N17.9 Acute kidney failure, unspecified; N39.0 Urinary tract infection, site not specified; Z68.42 Body mass index [BMI] 45.0-49.9, adult; D50.0 Iron deficiency anemia secondary to blood loss (chronic); D69.6 Thrombocytopenia, unspecified; I85.10 Secondary esophageal varices without bleeding; D72.829 Elevated white blood cell count, unspecified; E83.51 Hypocalcemia; E87.5 Hyperkalemia; F32.9 Major depressive disorder, single episode, unspecified; F41.9 Anxiety disorder, unspecified; I46.9 Cardiac arrest, cause unspecified; K74.60 Unspecified cirrhosis of liver; L73.2 Hidradenitis suppurativa; L89.90 Pressure ulcer of unspecified site, unspecified stage; R57.1 Hypovolemic shock; Z82.49 Family history of ischemic heart disease and other diseases of the circulatory system; I69.331 Monoplegia of upper limb following cerebral infarction affecting right dominant side; I69.392 Facial weakness following cerebral infarction
CPT/HCPCS: 36415; 36600; 70450; 71045; 80048; 80053; 80307; 81001; 82310; 82805; 82947; 83605; 84132; 84484; 85007; 85025; 85027; 85384; 85610; 85730; 86850; 86900; 86901; 86920; 86927; 87040; 87086; 87186; 93005; 94644; C9113; G0480; J0171; J1815; J2354; J3490; J7042; J7050; J7613; P9016; P9017; P9035; 99285-25; J7030